=== PATIENT | female | born 1975 | race American Indian/Alaskan Native ===

== ENCOUNTER 2017-08-04 15:45 | Emergency (ER) | payer OTHER ==
[2017-08-04 16:08] VITALS: BP 122/68; PULSE 68; RESP 16; TEMP 98.4; O2SAT 100
--- NOTE | 2017-08-04 16:17 | ED PDOC ---
Arrival/HPI - General Chief Complaint: Trauma Time Seen by Provider: 08/04/17 15:47 Historian: Patient - History of Present Illness Narrative History of Present Illness (Text): 08/04/17 16:03 42 y/o female, no significant pmh, nkda, c/o rt.wrist/hip pain and lt. knee pain s/p fall x 1 hour. Pt. stated that she tripped over the obstructing object on the floor, landed on the rt. wrist and hip plus lt. knee region, no head or neck injury, no LOC, no change in vision, no rash, no night sweat, no palpitation, no abdominal pain, no other medical or psychological complaints. Past Medical History - Provider Review Nursing Documentation Reviewed: Yes - Infectious Disease Hx of Infectious Diseases: None - Psychiatric Hx Substance Use: No Family/Social History - Physician Review Nursing Documentation Reviewed: Yes Family/Social History: Unknown Family HX Smoking Status: Never Smoked Hx Alcohol Use: Yes Frequency of alcohol use: Socially Hx Substance Use: No Allergies/Home Meds Allergies/Adverse Reactions: Allergies Penicillins Allergy (Verified 08/04/17 15:54) ITCHING Review of Systems - Review of Systems Constitutional: absent: Fatigue, Fevers ENT: absent: Hearing Changes Respiratory: absent: SOB, Cough Cardiovascular: absent: Chest Pain Gastrointestinal: absent: Abdominal Pain, Nausea, Vomiting Musculoskeletal: Arthralgias. absent: Back Pain, Neck Pain, Joint Swelling, Myalgias Skin: absent: Rash, Pruritis Neurological: absent: Headache, Dizziness Psychiatric: absent: Anxiety, Depression Physical Exam Vital Signs Temp Pulse Resp BP Pulse Ox 08/04/17 16:07 98.4 F 68 16 122/68 100 - Systems Exam Head: Present: Atraumatic, Normocephalic. No: Tenderness, Contusion, Swelling, Ecchymosis, Abrasion, Laceration, Other Pupils: Present: PERRL Extroacular Muscles: Present: EOMI Conjunctiva: Present: Normal Mouth: Present: Moist Mucous Membranes Neck: Present: Normal Range of Motion Respiratory/Chest: Present: Clear to Auscultation, Good Air Exchange. No: Respiratory Distress, Accessory Muscle Use Cardiovascular: Present: Regular Rate and Rhythm, Normal S1, S2. No: Murmurs Abdomen: No: Tenderness, Distention, Peritoneal Signs Back: Present: Normal Inspection Upper Extremity: Present: Normal Inspection, Normal ROM, Neurovascularly Intact , Capillary Refill < 2s, Other (Rt. wrist: +ttp on the distal radial region with no swelling, no scaphoid tenderness, skin intact, FROM without limitation, sensation intact, motor 5/5. ). No: Cyanosis, Edema, Deformity Lower Extremity: Present: Normal Inspection, Neurovascularly Intact, Other ( Bilateral lower extremities: +ttp on the rt. hip region with no ecchymosis, + ttp on the lt. anterior patella region, no deformity, FROM without limitation, sensation intact, motor 5/5, +DPPT pulses, capillary refill< 2 seconds, neurovascular intact. ). No: Edema Neurological: Present: GCS=15, CN II-XII Intact, Speech Normal Skin: Present: Warm, Dry, Normal Color. No: Rashes Psychiatric: Present: Alert, Oriented x 3, Normal Insight, Normal Concentration Medical Decision Making ED Course and Treatment: 08/04/17 16:19 -tylenol -xrays -observe and reassess 08/04/17 17:28 -Urine hcg negative -xrays of the lt. knee/rt. hip/pelvis and rt. wrist show no fracture or dislocation. -Discharge home with naproxen, willam wrap, flexeril, ice compression, follow up with your own pmd and orthopedic within 2 days, return to the ER for any new or worsening signs or symptoms. - RAD Interpretation Radiology Orders: 08/04/17 16:01 HIP MIN 4V W/ PELVIS RT [RAD] Stat KNEE WITH PATELLA LEFT 3 VIEW [RAD] Stat WRIST, RIGHT 3 VIEWS [RAD] Stat Rt. wrist xray: HISTORY: wrist pain s/p fall COMPARISON: None. FINDINGS: BONES: Normal. No fracture. JOINTS: Normal. No dislocation. SOFT TISSUES: Normal. OTHER FINDINGS: None. IMPRESSION: Normal right wrist radiographs. Rt. hip and pelvis xray: PROCEDURE: Right Hip and pelvis Radiographs. HISTORY: rt. hip pain s/p fall COMPARISON: None. FINDINGS: BONES: Normal. No fracture. JOINTS: Normal. SOFT TISSUES: Normal. OTHER FINDINGS: None. IMPRESSION: Normal radiographs of right hip. -- Lt. knee xray: HISTORY: pain, s/p fall COMPARISON: None. FINDINGS: BONES: Normal. No fracture. JOINTS: Normal. No osteoarthritis. JOINT EFFUSION: None. OTHER FINDINGS: None. 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 No Sleep Is patient sleeping during reassessment? 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 Disposition/Present on Arrival - Present on Arrival Any Indicators Present on Arrival: No History of DVT/PE: No History of Uncontrolled Diabetes: No Urinary Catheter: No History of Decub. Ulcer: No History Surgical Site Infection Following: None - Disposition Have Diagnosis and Disposition been Completed?: Yes Diagnosis: Accidental fall, Arthralgia Disposition: HOME/ ROUTINE Disposition Time: 16:20 Patient Plan: Discharge Patient Problems: Current Active Problems Problem Status Onset Accidental fall Acute Arthralgia Acute Condition: GOOD Additional Instructions: -Discharge home with naproxen, willam wrap, flexeril, ice compression, follow up with your own pmd and orthopedic within 2 days, return to the ER for any new or worsening signs or symptoms. Prescriptions: Cyclobenzaprine [Cyclobenzaprine HCl] 10 mg PO TID PRN #21 tab PRN Reason: Other Naproxen 500 mg PO BID PRN #28 tab PRN Reason: Other Referrals: [facility] [place] [facility] [place] - Follow up with primary Sukh Ramirez MD [Staff Provider] - Follow up with primary Forms: WORK NOTE
--- NOTE | 2017-08-04 17:22 | RAD ---
PROCEDURE: Right Hip and pelvis Radiographs. HISTORY: rt. hip pain s/p fall COMPARISON: None. FINDINGS: BONES: Normal. No fracture. JOINTS: Normal. SOFT TISSUES: Normal. OTHER FINDINGS: None. IMPRESSION: Normal radiographs of right hip.
--- NOTE | 2017-08-04 17:22 | RAD ---
PROCEDURE: Right Wrist Radiographs. HISTORY: wrist pain s/p fall COMPARISON: None. FINDINGS: BONES: Normal. No fracture. JOINTS: Normal. No dislocation. SOFT TISSUES: Normal. OTHER FINDINGS: None. IMPRESSION: Normal right wrist radiographs.
--- NOTE | 2017-08-04 17:23 | RAD ---
PROCEDURE: Right Knee and patella Radiographs. HISTORY: pain, s/p fall COMPARISON: None. FINDINGS: BONES: Normal. No fracture. JOINTS: Normal. No osteoarthritis. JOINT EFFUSION: None. OTHER FINDINGS: None. IMPRESSION: Normal radiographs of the right knee.
== END 2017-08-04 18:23 | disposition home or self-care (01) ==
LOC: ED 15:45 → MERGE 15:45 → ED 18:23
DX: M25.531 Pain in right wrist (principal); M25.551 Pain in right hip; M25.562 Pain in left knee; W01.0XXA Fall on same level from slipping, tripping and stumbling without subsequent striking against object, initial encounter; Y92.9 Unspecified place or not applicable